=== PATIENT | female | born 1935 | race African-American/Black ===

== ENCOUNTER 2017-02-22 15:18 | Inpatient (IN) | payer MEDICARE, MEDICAID ==
[~2017-02-22] VITALS: Ht 162.6 cm; Wt 59.9 kg
[2017-02-22] MEDS ORDERED: SODIUM CHLORIDE 0.9% 1000ML BAG (SEPSIS BOLUS) IV ONE (15:30)
[2017-02-22 16:08] LABS: BASOPHILS % 0.6 % (0.0-2.0); EOSINOPHILS % 1.7 % (0.0-5.0); HEMATOCRIT. 32.5 % (36.0-48.0); HEMOGLOBIN. 10.3 g/dL (12.0-16.0); LYMPHOCYTES % 22.1 % (20.0-50.0); MEAN CORPUSCULAR HEMOGLOBIN 25.4 pg (28.0-32.0); MEAN CORPUSCULAR VOLUME 80.4 fL (81.0-99.0); MEAN PLATELET VOLUME 7.9 fl (7.4-10.4); MONOCYTES % 4.6 % (2.0-8.0); PLATELET 277 x1000/uL (130-400); RED BLOOD CELL COUNT 4.04 mill/uL (4.2-5.4); RED CELL DISTRIBUTION WIDTH 17.2 % (11.6-14.6)
[2017-02-22 16:11] LABS: CHLORIDE 106 mEq/L (98-107)
[2017-02-22 16:15] LABS: CARBON DIOXIDE 19 mEq/L (21-32); ETHANOL BLOOD < 10 mg/dL
[2017-02-22 16:18] LABS: INR 1.1; PROTHROMBIN TIME 11.4 sec (9.4-11.6)
[2017-02-22 17:17] LABS: CLARITY URINE TURBID (CLEAR); COLOR URINE YELLOW (YELLOW); GLUCOSE URINE NEGATIVE (NEGATIVE); KETONES URINE NEGATIVE (NEGATIVE); LEUKOCYTE ESTERASE URINE 3+ (NEGATIVE); NITRITE URINE POSITIVE (NEGATIVE); OCCULT BLOOD URINE 1+ (NEGATIVE); PH URINE 6.5 (4.5-8.0); PROTEIN URINE 1+ (NEGATIVE); SPECIFIC GRAVITY URINE 1.014 (1.005-1.030)
[2017-02-22 17:28] LABS: *AMPHETAMINES SCREEN URINE NEGATIVE (NEGATIVE); *BARBITURATES SCREEN URINE NEGATIVE (NEGATIVE); *BENZODIAZEPINES SCREEN URINE PRESUMTIVE POSITIVE (NEGATIVE); *COCAINE SCREEN URINE NEGATIVE (NEGATIVE); CANNABINOID URINE SCREEN NEGATIVE (NEGATIVE); METHADONE URINE SCREEN NEGATIVE (NEGATIVE); OPIATES URINE SCREEN NEGATIVE (NEGATIVE); PHENCYCLIDINE URINE SCREEN NEGATIVE (NEGATIVE)
[2017-02-22] MEDS ORDERED: VANCOMYCIN 1 G PREMIX 200 ML IV SCH (17:45)
[2017-02-22] MEDS ORDERED: CEFTRIAXONE 1 G PREMIX 50 ML IV ONE (17:45)
[2017-02-22] MEDS ORDERED: LORAZEPAM 2MG/ML CPJ IV ONE (18:45)
[2017-02-22] MEDS ORDERED: SODIUM CHLORIDE 0.9% 1,000 ML IV SCH (18:45)
[2017-02-22] MEDS ORDERED: HYDRALAZINE 20MG/ML VIAL IV ONE (19:30)
[2017-02-22] MEDS ORDERED: NA PHOS,M-B/NA PHOS,DI-BA ENEMA 118ML PR PRN (21:30)
[2017-02-22] MEDS ORDERED: IPRATROPIUM/ALBUTEROL 0.5-3(2.5)MG/3ML NEB INH PRN (21:30)
[2017-02-22] MEDS ORDERED: HYDROMORPHONE HCL/PF 2MG/ML CPJ IV PRN (21:30)
[2017-02-22] MEDS ORDERED: LORAZEPAM 0.5MG TABLET PO PRN (21:30)
[2017-02-22] MEDS ORDERED: MAGNESIUM/ALUMINUM HYDROXIDE/SIMETHICONE 30ML UDC PO PRN (21:30)
[2017-02-22] MEDS ORDERED: GUAIFENESIN 200MG/10ML SUGAR FREE UDC PO PRN (21:30)
[2017-02-22] MEDS ORDERED: ONDANSETRON HCL 4MG/2ML VIAL IV PRN (21:30)
[2017-02-22] MEDS ORDERED: LEVOFLOXACIN 500MG PREMIX 100 ML IV SCH (21:30)
[2017-02-22] MEDS ORDERED: HYDROCODONE/ACETAMINOPHEN 5/325MG TABLET PO PRN (21:30)
[2017-02-22] MEDS ORDERED: DOCUSATE SODIUM 100MG CAPSULE PO PRN (21:30)
[2017-02-22] MEDS ORDERED: DIPHENHYDRAMINE 50MG/ML VIAL IV PRN (21:30)
[2017-02-22] MEDS ORDERED: ACETAMINOPHEN 325MG TABLET PO PRN (21:30)
[2017-02-22 22:05] VITALS: BP 174/93
[2017-02-22 23:00] VITALS: BP 174/93
[2017-02-22] MEDS: SODIUM CHLORIDE 0.45% 1,000 ML IV SCH (23:11)
[2017-02-22] MEDS: CLONIDINE 0.1MG TABLET PO PRN (23:11)
[2017-02-23] VITALS: BP 143/75
[2017-02-23] MEDS ORDERED: LEVOFLOXACIN 500MG PREMIX 100 ML IV NR
[2017-02-23 01:12] LABS: CARBON DIOXIDE 25 mEq/L (21-32); CHLORIDE 108 mEq/L (98-107)
[2017-02-23 01:13] LABS: TROPONIN I 0.06 ng/mL (0.00-0.04)
[2017-02-23 04:00] VITALS: BP 116/67
[2017-02-23 07:11] LABS: BASOPHILS % 0.6 % (0.0-2.0); EOSINOPHILS % 0.7 % (0.0-5.0); HEMATOCRIT. 25.8 % (36.0-48.0); HEMOGLOBIN. 8.3 g/dL (12.0-16.0); LYMPHOCYTES % 18.5 % (20.0-50.0); MEAN CORPUSCULAR HEMOGLOBIN 25.1 pg (28.0-32.0); MEAN CORPUSCULAR VOLUME 78.2 fL (81.0-99.0); MEAN PLATELET VOLUME 7.7 fl (7.4-10.4); MONOCYTES % 10.4 % (2.0-8.0); NEUTROPHILS % 69.8 % (40.0-76.0); PLATELET 238 x1000/uL (130-400)
[2017-02-23 07:38] LABS: CARBON DIOXIDE 26 mEq/L (21-32); CHLORIDE 109 mEq/L (98-107); HDL CHOLESTEROL 47 mg/dL (40-59); LDL CHOLESTEROL 93 mg/dL (5-100); TROPONIN I 0.12 ng/mL (0.00-0.04)
[2017-02-23 08:00] VITALS: BP 153/85
[2017-02-23] MEDS ORDERED: POTASSIUM CHLORIDE 20MEQ TABLET SR PO NR (08:00)
[2017-02-23] MEDS: ENOXAPARIN 40MG/0.4ML SYR SUBCUT SCH (08:59)
[2017-02-23] MEDS: ASPIRIN 81MG EC TABLET PO SCH (08:59)
[2017-02-23 12:30] VITALS: BP 141/78
[2017-02-23] MEDS: CLONIDINE 0.1MG TABLET PO PRN ×2 (16:03→20:11)
[2017-02-23] MEDS: SODIUM CHLORIDE 0.45% 1,000 ML IV SCH (16:05)
[2017-02-23 16:39] VITALS: BP 185/82
[2017-02-23 20:00] VITALS: BP 190/95
[2017-02-24] VITALS (7 sets, daily range): BP systolic 137–187; BP diastolic 67–92
[2017-02-24] MEDS: CLONIDINE 0.1MG TABLET PO PRN ×2 (04:55→10:28)
[2017-02-24 07:08] LABS: HEMATOCRIT. 32.8 % (36.0-48.0); HEMOGLOBIN. 10.3 g/dL (12.0-16.0); MEAN CORPUSCULAR HEMOGLOBIN 25.1 pg (28.0-32.0); MEAN CORPUSCULAR VOLUME 79.7 fL (81.0-99.0); MEAN PLATELET VOLUME 8.2 fl (7.4-10.4); PLATELET 251 x1000/uL (130-400); RED BLOOD CELL COUNT 4.11 mill/uL (4.2-5.4); RED CELL DISTRIBUTION WIDTH 17.3 % (11.6-14.6)
[2017-02-24 07:28] LABS: CARBON DIOXIDE 25 mEq/L (21-32); CHLORIDE 109 mEq/L (98-107)
[2017-02-24] MEDS: ASPIRIN 81MG EC TABLET PO SCH (09:09)
[2017-02-24] MEDS: ENOXAPARIN 40MG/0.4ML SYR SUBCUT SCH (09:11)
[2017-02-24 11:06] LABS: PLATELET ESTIMATE NORMAL
[2017-02-24] MEDS ORDERED: CLONIDINE 0.2MG TABLET PO PRN (12:11)
[2017-02-24] MEDS: AMLODIPINE 10MG TABLET PO SCH (12:39)
[2017-02-24] MEDS: SODIUM CHLORIDE 0.45% 1,000 ML IV SCH (14:33)
[2017-02-24] MEDS ORDERED: CLONIDINE 0.1MG TABLET PO PRN (15:30)
[2017-02-24] MEDS: CLONIDINE 0.2MG TABLET PO PRN (17:01)
[2017-02-24] MEDS: METOPROLOL TARTRATE 25MG TABLET PO SCH (21:09)
[2017-02-25 00:26] VITALS: BP 112/57
[2017-02-25 03:51] VITALS: BP 142/72
[2017-02-25 06:42] LABS: BASOPHILS % 0.6 % (0.0-2.0); EOSINOPHILS % 3.9 % (0.0-5.0); HEMATOCRIT. 27.6 % (36.0-48.0); HEMOGLOBIN. 9.1 g/dL (12.0-16.0); LYMPHOCYTES % 27.8 % (20.0-50.0); MEAN CORPUSCULAR HEMOGLOBIN 25.6 pg (28.0-32.0); MEAN CORPUSCULAR VOLUME 77.9 fL (81.0-99.0); MONOCYTES % 8.7 % (2.0-8.0); PLATELET 255 x1000/uL (130-400); RED BLOOD CELL COUNT 3.54 mill/uL (4.2-5.4); RED CELL DISTRIBUTION WIDTH 17.2 % (11.6-14.6)
[2017-02-25 08:00] VITALS: BP 166/79
[2017-02-25] MEDS: ENOXAPARIN 40MG/0.4ML SYR SUBCUT SCH (08:18)
[2017-02-25] MEDS: AMLODIPINE 10MG TABLET PO SCH (08:19)
[2017-02-25] MEDS: ASPIRIN 81MG EC TABLET PO SCH (08:19)
[2017-02-25] MEDS: CLONIDINE 0.2MG TABLET PO PRN (08:20)
[2017-02-25] MEDS: METOPROLOL TARTRATE 25MG TABLET PO SCH (08:22)
[2017-02-25 09:56] LABS: CARBON DIOXIDE 26 mEq/L (21-32); CHLORIDE 109 mEq/L (98-107)
[2017-02-25 11:40] VITALS: BP 147/70
[2017-02-25 12:00] VITALS: BP 147/70
[2017-02-25 16:00] VITALS: BP 156/80
== END 2017-02-25 16:50 | disposition home or self-care (01) | DRG 720 ==
LOC: EDBD 15:24 → ER 15:24 → 5WST 18:46 → CANRESERV 19:50 → ENRESERV 19:50
PROVIDERS: ADMIT Internal Medicine; ATTEND Internal Medicine
DX: A41.9 Sepsis, unspecified organism (principal); G93.41 Metabolic encephalopathy; E46 Unspecified protein-calorie malnutrition; N39.0 Urinary tract infection, site not specified; R56.9 Unspecified convulsions; E86.0 Dehydration; I10 Essential (primary) hypertension; Z68.22 Body mass index [BMI] 22.0-22.9, adult
CPT/HCPCS: 36415; 70450; 71010; 80048; 80053; 80061; 80305; 81001; 82962; 83605; 84484; 85025; 85610; 87040; 93005; 96365; 96366; 96367; 96375; 97162; 99291; G0482; J0360; J0696; J1650; J1956; J2060; J3370; J7030; A4315